=== PATIENT | female | born 1950 | race Caucasian/White ===

== ENCOUNTER 2017-03-05 09:40 | Emergency (ER) | payer OTHER ==
[2017-03-05 09:54] VITALS: TEMP 97.9
--- NOTE | 2017-03-05 09:54 | CPEKG ---
Heart Rate: 98 RR Interval: 612 P-R Interval: 188 QRSD Interval: 92 QT Interval: 364 QTC Interval: 465 P Philo: 72 QRS Philo: -20 T Wave Philo: 46 EKG Severity - ABNORMAL ECG - EKG Impression: SINUS RHYTHM EKG Impression: LEFT VENTRICULAR HYPERTROPHY Electronically Signed By: Brandi Rodriguez 05-Mar-2017 16:53:52
[2017-03-05] MEDS ORDERED: ASPIRIN 81 MG CHEWABLE TAB PO ONE (09:58)
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
[2017-03-05] MEDS ORDERED: IOPAMIDOL (ISOVUE-300) 100 ML BTL ONE (10:50)
[2017-03-05] MEDS ORDERED: fentaNYL 100 MCG/2 ML INJ IVP ONE (12:52)
[2017-03-05 14:07] VITALS: RESP 16
[2017-03-05 14:08] VITALS: BP 144/92; PULSE 79; O2SAT 91
== END 2017-03-05 14:08 | disposition home or self-care (01) ==
DX: S20.02XA Contusion of left breast, initial encounter (principal); V43.62XA Car passenger injured in collision with other type car in traffic accident, initial encounter; Y92.410 Unspecified street and highway as the place of occurrence of the external cause
CPT/HCPCS: 82947-QW; 96374; J3010; Q9967